=== PATIENT | female | born 1985 | race Two or more races ===

== ENCOUNTER 2020-03-01 06:28 | Emergency (ER) | payer MEDICAID ==
[~2020-03-01] VITALS: Ht 172.7 cm; Wt 72.6 kg
[2020-03-01 06:36] VITALS: Ht 172.7 cm; Wt 72.6 kg
[2020-03-01 08:36] VITALS: BP 125/76
== END 2020-03-01 08:36 | disposition home or self-care (01) ==
LOC: ED 06:28
DX: S80.12XA Contusion of left lower leg, initial encounter (principal); S80.11XA Contusion of right lower leg, initial encounter; S60.222A Contusion of left hand, initial encounter; S60.221A Contusion of right hand, initial encounter; R51 Headache; Y04.8XXA Assault by other bodily force, initial encounter; Y93.89 Activity, other specified; Y92.89 Other specified places as the place of occurrence of the external cause; Y99.8 Other external cause status